=== PATIENT | male | born 1970 | race African-American/Black ===

== ENCOUNTER 2020-02-06 16:06 | Emergency (ER) | payer OTHER, SELFPAY ==
[2020-02-06 16:08] VITALS: BP 123/90; PULSE 87; RESP 18; TEMP 37; O2SAT 100
--- NOTE | 2020-02-06 16:25 | ED.WOUNDLAC ---
HPI - Wound/Laceration General Chief Complaint: Wound/Laceration Stated Complaint: Head Lac Time Seen by Provider: 02/06/20 16:20 History of Present Illness HPI narrative: He was carrying a stationary exercise bike up the stairs when he lost control and it struck the top of his head. He has moderate pain in his scalp and head. He had significant bleeding which is currently under control. No LOC. Related Data Home Medications Medication Instructions Recorded Confirmed simvastatin 20 mg PO DAILY 02/06/20 02/06/20 Allergies Allergy/AdvReac Type Severity Reaction Status Date / Time No Known Allergies Allergy Verified 02/06/20 16:12 Review of Systems Review of Systems: All systems reviewed & are unremarkable except as noted in HPI and below PMFSH Past Medical History Medical History (Updated 02/06/20 @ 17:13 by Migue Prado MD) Hypercholesterolemia Social History Social History Gender identity (if verbalized by the patient): Male Exam Const: General: healthy appearing, no acute distress and alert Orientation/consciousness: patient oriented x3 HENMT: Other: left paietal scalp swelling. 4 cm superior scalp laceration. Eyes: Pupils: Equal, round and reactive pupils present Neck: Neck: normal visual inspection Resp: Effort & Inspection: normal respiratory effort Skin: General skin exam: normal color Neuro: General: patient oriented x3, moves all extremities, no focal motor deficits and CN's II-XI intact bilaterally Speech: normal speech Extrem: General: normal to inspection Psych: Appearance: grossly normal and well kempt Mental Status: mental status grossly normal Affect: normal affect Thought content: Yes Normal thought content present Course Vital Signs Vital signs: Vital Signs Temperature 37.0 C 02/06/20 16:08 Pulse Rate 87 02/06/20 16:08 Respiratory Rate 18 02/06/20 16:08 Blood Pressure 123/90 02/06/20 16:08 Pulse Oximetry 100 02/06/20 16:08 Temperature 37.0 C 02/06/20 16:08 Pulse Rate 87 02/06/20 16:08 Respiratory Rate 18 02/06/20 16:08 Blood Pressure 123/90 02/06/20 16:08 Pulse Oximetry 100 02/06/20 16:08 Procedures Laceration Laceration 1: Date: 02/06/20 Time: 17:14 Site: scalp Size (cm): 4 Description: linear Depth: simple, single layer Local Anesthetic: lidocaine 1% and with epi Amount of anesthesia used (mL): 3 Pre-repair: wound explored and irrigated ====== Skin Level ====== Skin layer closed with: other (chronic gut) Size (cm): 4-0 Number of sutures: 3 Technique: horizontal mattress ====== Subcutaneous Layer ====== ====== Muscle Layer ====== ====== Tendon Layer ====== MDM - Wound/Laceration MDM Narrative Medical decision making narrative: Minor head trauma with no indication for CT. I will clean and suture the wound. Differential Diagnosis Differential diagnosis: Likely laceration Discharge Plan Discharge Clinical Impression: Laceration of scalp Qualifiers: Encounter type: initial encounter Qualified Code(s): S01.01XA - Laceration without foreign body of scalp, initial encounter Patient Disposition: Home, Self-Care Condition: Stable Instructions: Laceration (ED) Prescriptions: No Action simvastatin 20 mg Tablet 20 mg PO DAILY RF: 0 Follow-up/Referrals: PHYSICIAN NOT ON STAFF,NONSTAFF [Primary Care Provider] -
[2020-02-06] MEDS: ACETAMINOPHEN 500 MG TABLET 1000 MG PO (17:20)
== END 2020-02-06 17:28 | disposition home or self-care (01) ==
PROVIDERS: Emergency Provider Emergency Medicine
DX: S01.01XA Laceration without foreign body of scalp, initial encounter (principal); E78.00 Pure hypercholesterolemia, unspecified; W22.8XXA Striking against or struck by other objects, initial encounter
CPT/HCPCS: 12002; 99283; A9270

== ENCOUNTER 2024-05-02 08:48 | Emergency (ER) | payer OTHER, SELFPAY ==
--- NOTE | ~2024-05-02 | CT_ITS ---
CT lumbar spine wo con Ordering provider: Kayla Peres APRN History: 53 years Male with . lower back pain . Comparison: None. Technique: CT lumbar spine without contrast. Automated exposure control and iterative reconstruction technique were employed. The dose-length product was 375.91 mGy-cm. FINDINGS: VERTEBRAE: Normal height and alignment. No subluxation or visible acute fracture. Mild degenerative c hanges. DISC SPACES: Well maintained. T12-L1: No stenosis. L1-L2: No stenosis. L2-L3: No stenosis. Right facet joint disease. L3-L4: No stenosis. Left facet joint disease. L4-L5: No stenosis. Mild diffuse disc bulge. Narrowing of the left foramen.. Left facet joint diseas e. L5-S1: No stenosis. Mild diffuse disc bulge. PARASPINOUS SOFT TISSUES: Mild atheromatous disease of the abdominal aorta. IMPRESSION: No acute osseous abnormalities. Multilevel disc bulges. No definite nerve root compression. Reviewed, dictated and finalized at location A.
[2024-05-02 09:02] VITALS: BP 132/78; PULSE 61; RESP 16; TEMP 36.6; O2SAT 100
--- NOTE | 2024-05-02 09:33 | ED.BACK ---
HPI - Back Pain/Injury General Chief Complaint: Back Pain/Injury Stated Complaint: back pain Time Seen by Provider: 05/02/24 08:57 History of Present Illness HPI Narrative: Patient is a 53-year-old male who presents ER with pain. He reports the pain started 2 weeks ago but yesterday became. Patient reports he called his doctor yesterday who put through orders her back x-rays this morning when patient woke he reports pain was so severe that it he knew he needed to come to emergency room for evaluation. He reports yesterday and this morning when he woke up he was unable to walk. Patient experienced some relief when lying on the floor. He denies any injury. Patient endorses tingling down his left lower leg. He has no complaints of incontinence, chest pain, or shortness breath. Related Data Home Medications Medication Instructions Recorded Confirmed simvastatin 20 mg tablet 20 mg PO DAILY 02/06/20 02/06/20 Allergies Allergy/AdvReac Type Severity Reaction Status Date / Time No Known Allergies Allergy Verified 02/06/20 16:12 Review of Systems Review of Systems: All systems reviewed & are unremarkable except as noted in HPI and below PMFSH Past Medical History Medical History Hypercholesterolemia Social History Social History Gender identity (if verbalized by the patient): Male Exam Narrative: GENERAL: Well appearing, well-nourished, non-toxic, in mild distress d/t pain. HEAD: Normocephalic, atraumatic. NECK: Supple. No adenopathy, no masses. RESPIRATORY: Airway patent, respirations nonlabored. Clear to auscultation bilaterally, no rales, rhonchi, wheezing. CARDIOVASCULAR: Regular rate and rhythm without murmurs, rubs, or gallops. Peripheral pulses 2+ and equal bilaterally. ABDOMINAL: Soft, nontender, nondistended, no hepatosplenomegaly. Normoactive BS. MUSCULOSKELETAL: Moves all extremities. Strength/ROM intact without gross deformities. Increased pain with hip flexion. No increased pain with palpation. SKIN: Warm, dry, normal color. No rashes. NEURO: A&O X3. Speech clear. Cranial nerves II-XII grossly intact. No ataxic movements. PSYCHIATRIC: Appropriate mood and affect. Normal interaction. Course Vital Signs Vital signs: Vital Signs Temperature 36.6 C 05/02/24 09:02 Pulse Rate 61 05/02/24 09:02 Respiratory Rate 16 05/02/24 09:02 Blood Pressure 132/78 05/02/24 09:02 Pulse Oximetry 100 05/02/24 09:02 Temperature 36.6 C 05/02/24 09:02 Pulse Rate 61 05/02/24 09:02 Respiratory Rate 16 05/02/24 09:02 Blood Pressure 132/78 05/02/24 09:02 Pulse Oximetry 100 05/02/24 09:02 MDM - Back Pain/Injury MDM Narrative Medical decision making narrative: Patient is a 53-year-old male who presents ER with pain. He reports the pain started 2 weeks ago but yesterday became. Patient reports he called his doctor yesterday who put through orders her back x-rays this morning when patient woke he reports pain was so severe that it he knew he needed to come to emergency room for evaluation. He reports yesterday and this morning when he woke up he was unable to walk. Patient experienced some relief when lying on the floor. He denies any injury. Patient endorses tingling down his left lower leg. He has no complaints of incontinence, chest pain, or shortness breath. Patient's lumbar spine CT scan shows No acute osseous abnormalities. Multilevel disc bulges. No definite nerve root compress. Results shared with the patient. Patient verbalizes understanding and would like to be discharged. He reports his pain has improved and he will follow up with neruosurgery. Differential Diagnosis Differential diagnosis: Likely lumbar radiculopathy, sciatica, strain of lumbar region and discitis Imaging Data Attestation: I personally reviewed a
[2024-05-02] MEDS: KETOROLAC (*BKC) 60 MG/2 ML VIAL IM (10:17)
[2024-05-02] MEDS: dexAMETHasone SOD PHOS INJ 10 MG/ML 1 ML VIAL IM (10:17)
[2024-05-02 11:19] VITALS: BP 127/86; PULSE 82; RESP 16; TEMP 37.1; O2SAT 97
== END 2024-05-02 11:19 | disposition home or self-care (01) ==
PROVIDERS: Emergency Provider Registered Nurse
DX: M51.37 Other intervertebral disc degeneration, lumbosacral region (principal); M51.36 Other intervertebral disc degeneration, lumbar region; E78.00 Pure hypercholesterolemia, unspecified
CPT/HCPCS: 72131; 96372; 99284; J1100; J1885

== ENCOUNTER 2024-12-26 10:52 | Outpatient (CLI) | payer OTHER, SELFPAY ==
--- NOTE | ~2024-12-26 | US_ITS ---
Abdominal Sonogram: Real-time sonographic imaging of the abdomen was performed. Clinical History: Abdominal pain Findings: The liver appears echogenic, with no evidence of mass lesion or bile duct dilatation. Main portal vein demonstrates normal direction of flow. The spleen is normal in size without evidence of focal lesion. The gallbladder is well distended, and appears normal with no evidence of gallstone or wall thickening. The common bile duct measures 3 mm. The visualized pancreas, aorta, and IVC are un remarkable. The right kidney measures 9.5 cm in length and the left kidney measures 10.2 cm. There is no hydronephrosis or renal calculus. Impression: Diffuse fatty infiltration of the liver. Reviewed, dictated and finalized at location . Impression: Diffuse fatty infiltration of the liver.
== END 2024-12-26 10:53 | disposition home or self-care (01) ==
LOC: MICIMG 10:55
PROVIDERS: PCP Emergency Medicine; Visit Provider Emergency Medicine
DX: K76.0 Fatty (change of) liver, not elsewhere classified (principal)
CPT/HCPCS: 76700

== ENCOUNTER 2025-04-02 01:23 | Day surgery (SDC) | payer OTHER, SELFPAY ==
[2025-03-20 08:38] VITALS: BMI 25.6
[2025-04-02 07:10] VITALS: BP 116/78; PULSE 69; RESP 16; TEMP 36.5; O2SAT 100; BMI 25.0
[2025-04-02] MEDS: LACTATED RINGERS 1,000 ML 150 ML IV CONT (07:22)
--- NOTE | 2025-04-02 07:29 | WPDANESEPPF ---
Anes - Initial Pre Proc Eval Procedure: Operation Date: 04/02/25 08:30 Proposed Procedures p Esophagogastroduodenoscopy&Screen Colon - Manuel Ford MD Date/Time: 04/02/25 07:29 Surgeon: Manuel Ford MD Pre Op Diagnosis: Gastro-esophageal reflux disease without esophagit Patient Data Age: 54 Gender: M Height: 1.68 m Weight: 70.5 kg Last Vital Signs Temp 36.5 C 04/02/25 07:10 Pulse 69 04/02/25 07:10 Resp 16 04/02/25 07:10 BP 116/78 04/02/25 07:10 Pulse Ox 100 04/02/25 07:10 O2 Del Method Room Air 04/02/25 07:10 Allergies Allergy/AdvReac Type Severity Reaction Status Date / Time No Known Allergies Allergy Verified 04/02/25 07:08 Home Medications ?Medication ?Instructions ?Recorded ?Confirmed ?Type simvastatin 20 mg tablet 20 mg PO DAILY 02/06/20 04/02/25 History Patient hx anesthesia problems: none Family hx anesthesia problems: none Results Review: All pre-operative results and documents have been reviewed as part of the pre-operative evaluation. [facility] Past Medical History Medical History Hypercholesterolemia Social History Social History Smoking status: Light tobacco smoker Tobacco type: cigars Additional smoking assessment comments: CIGARS OCCASIONALLY Alcohol intake: current Drinks per week: 2 Alcohol use details: WINE Substance use: never Substance use type: does not use Living arrangements: with family Gender identity (if verbalized by the patient): Male Spiritual care concerns: No Anes - Eval Final PreProcedure Day of Procedure 04/02/25 07:29 Patient weight: overweight Heart: regular rate and rhythm Lungs: clear to auscultation Airway: Mallampati scale class II Neurological: alert and oriented Last oral intake: >/= 8 hours ASA classification: II Emergent: no Anesthetic plan: proceed Anesthesia type and monitoring: general GIVS and standard monitoring Results Review: All pre-operative results and documents have been reviewed as part of the pre-operative evaluation. Informed Consent: The patient's anesthetic plan and its attendant risks and benefits were discussed with the patient/family/POA. Questions were solicited and answers provided to the satisfaction of the patient/family/POA.
--- NOTE | 2025-04-02 08:19 | PM.HPGS ---
History of Present Illness History of Present Illness Consent: Risks, benefits, and alternatives have been discussed and questions answered. Patient agrees to proceed with procedure. Chief complaint: Gastro-esophageal reflux disease without esophagit Narrative: Miguel Ángel Carballo is a 54 year old male with brief episode of epigastric pain, also needs screening colonoscopy Review of Systems Review of Systems: All systems reviewed & are unremarkable except as noted in HPI and below PMFSH Past Medical History Medical History (Updated 04/02/25 @ 08:20 by Manuel Ford MD) Colon cancer screening Epigastric pain Hypercholesterolemia Social History Social History Smoking status: Light tobacco smoker Tobacco type: cigars Additional smoking assessment comments: CIGARS OCCASIONALLY Alcohol intake: current Drinks per week: 2 Alcohol use details: WINE Substance use: never Substance use type: does not use Living arrangements: with family Gender identity (if verbalized by the patient): Male Spiritual care concerns: No Meds Home Medications and Allergies Home Medications ?Medication ?Instructions ?Recorded ?Confirmed ?Type simvastatin 20 mg tablet 20 mg PO DAILY 02/06/20 04/02/25 History Allergies Allergy/AdvReac Type Severity Reaction Status Date / Time No Known Allergies Allergy Verified 04/02/25 07:08 Vital Signs Vital Signs - 24 hr 04/02/25 07:10 Temperature 97.7 F Pulse Rate 69 Respiratory Rate 16 Blood Pressure 116/78 Pulse Oximetry 100 Oxygen Delivery Room Air Exam Const: General: comfortable and no acute distress HENMT: Face/Nose/Sinus: Normal nares present Eyes: General: appearance normal, both eyes and all related structures Neck: Neck: no JVD Resp: Auscultation: clear to auscultation bilaterally Cardio: Rate: regular rate Rhythm: regular rhythm GI: Inspection: non-distended GI Palp: Yes Soft to palpation Skin: General skin exam: normal color Neuro: Speech: normal speech Extrem: General: normal to inspection Psych: Mental Status: mental status grossly normal Assessment and Plan Assessment and plan (1) Epigastric pain: Code(s): R10.13 - Epigastric pain Status: Acute Assessment and Plan: egd (2) Colon cancer screening: Code(s): Z12.11 - Encounter for screening for malignant neoplasm of colon Status: Acute Assessment and Plan: colonoscopy
[2025-04-02] MEDS: BENZOCAINE (*SP) 60 ML SPRAY CAN (HURRICAINE) 1 SPRAY MUCOUS MEM (08:26)
--- NOTE | 2025-04-02 08:42 | S_PTH ---
PATIENT: Miguel Ángel Carballo LOC: [facility] [place]#:[id number] AGE/SX: 54/M ROOM: RE04/02/[address]: Manuel Ford MD : 1970 BED: DIS: 04/02/2025 SPEC #: [id number] RECD: 04/02/25 10:31 STATUS: JONO REQ #: [id number] CINDY: 04/02/25 08:[address]: Manuel Ford DEPT: [facility] Surgical RECD BY: Aleah Finnegan ENTERED: 04/02/25 10:32 SP TYPE: Surgical OTHR DR: Jamil Salas MD Tissues: A - Gastric Biopsy B - Colon Polypectomy C - Colon Polypectomy Procedures: Hematoxylin and Eosin Stain Gross and Microscopic Level 4
[2025-04-02 08:51] VITALS: BP 103/67; PULSE 77; RESP 24; O2SAT 100
[2025-04-02 09:01] VITALS: BP 108/69; PULSE 74; RESP 20; O2SAT 95
[2025-04-02 09:11] VITALS: BP 121/73; PULSE 65; RESP 21; O2SAT 100
== END 2025-04-02 09:26 | disposition home or self-care (01) ==
PROVIDERS: PCP Emergency Medicine; Visit Provider Internal Medicine Gastroenterology
PROC: 0DJ08ZZ Inspection of Upper Intestinal Tract, Via Natural or Artificial Opening Endoscopic (ICD-10-PCS; CPT 45378; principal; 2025-04-02 08:30)
DX: Z12.11 Encounter for screening for malignant neoplasm of colon (principal); D12.3 Benign neoplasm of transverse colon; D12.4 Benign neoplasm of descending colon; K64.8 Other hemorrhoids; K29.50 Unspecified chronic gastritis without bleeding; B96.81 Helicobacter pylori [H. pylori] as the cause of diseases classified elsewhere; K21.9 Gastro-esophageal reflux disease without esophagitis; E78.00 Pure hypercholesterolemia, unspecified; F17.290 Nicotine dependence, other tobacco product, uncomplicated
CPT/HCPCS: 43239; 45385; 88305; J2003; J2704; J7120

== ENCOUNTER 2025-07-13 08:13 | Outpatient (CLI) | payer OTHER, SELFPAY | END 2025-07-13 08:14 | disposition home or self-care (01) | LOC: ANHLAB 08:14 | PROVIDERS: PCP Emergency Medicine; Visit Provider Internal Medicine Gastroenterology | DX: K29.70 Gastritis, unspecified, without bleeding (principal); B96.81 Helicobacter pylori [H. pylori] as the cause of diseases classified elsewhere | CPT/HCPCS: 87338 ==